=== PATIENT | female | born 1965 | race Hispanic/Latino ===

== ENCOUNTER → 2024-11-21 | Outpatient (CLI) | payer OTHER, MEDICARE ==
--- NOTE | 2024-11-21 15:06 | HMCIMG ---
Exam Type: US VENOUS DOPPLER BILATERAL Clinical Information: Acute embolism and thrombosis of unspecified deep veins of the lower extre Comparison: None Findings: The examination shows nonocclusive thrombosis of the left popliteal vein, right common femoral vein, superficial femoral vein proximal to distal and popliteal vein as well. The rest of the venous structures evaluated shows no evidence of thrombosis. IMPRESSION: Thrombus as noted.
== END | disposition home or self-care (01) ==
LOC: RAH 13:55
PROVIDERS: ATTEND Internal Medicine
DX: I82.432 Acute embolism and thrombosis of left popliteal vein (principal); I82.411 Acute embolism and thrombosis of right femoral vein
CPT/HCPCS: 93970

== ENCOUNTER → 2024-11-30 | Outpatient (CLI) | payer OTHER, MEDICARE ==
--- NOTE | 2024-12-07 01:02 | HMCSR ---
APPROVED REPORT EXAM: Two-dimensional and M-mode echocardiogram with Doppler and color Doppler. Study Details: Hx: breast cancer INDICATION ICD: R94.31 Abnormal electrocardiogram 2D Dimensions RVDd4.2 cmLVEF(%)56.7 (>50%)LVED Vol(simp.)82.2 mL IVSd0.8 (0.7-1.1cm)FS(%)29 %LVES Vol(simp.)34.7 mL LVDd4.2 (3.8-5.6cm)LA (2D)3.2 (1.6-4.0cm)LVEF(%, simp.)58 % PWd1.0 (0.7-1.1cm)Ao Root(2D)2.7 (2.0-3.7cm)LA ESV INDEX (BP)19.14 mL/m2 LVDs2.9 (2.5-4.0cm)LVOT diam1.9 (1.8-2.4cm) IVC diam2.0 cm Deformation Strain Apical 4-17.0 % Apical 2-17.1 % Apical 3-17.0 % Global Strain-17.0 % M-Mode Dimensions EPSS0.5 cm LA (MM)4.0 (1.6-4.0cm) Ao Root(MM)2.7 (2.0-3.7cm) Aortic Valve AoV Vmax1.2 m/Sonali Peak GR5.3 mmHgLVOT Vmax1.0 m/s AoV VTI0.2 mAo Mean GR2.8 mmHgLVOT VTI0.21 m THAD (VMAX)2.52 cm2AVA (VTI) 2.5 cm2 Mitral Valve MV E Vmax68.3 cm/sDECEL Xcln408 ms MV A Vmax80.9 cm/sP 1/2 T62 ms E/A ratio0.8MVA (PHT)3.6 cm2 TDI E/E' Medial9.5E/E' Lateral7.9 Medial E' Peak V7.18 cm/sLateral E' Peak V8.62 cm/s Pulmonary Valve PV Vmax1.0 m/sPV VTI0.20 mPV Mean GR2.1 mmHg PV Peak GR4.0 mmHg Tricuspid Valve RAP (EST) 3 mmHgRVSP3.0 mmHg Left Ventricle The left ventricle is normal size. No regional wall motion abnormalities noted. Mild concentric left ventricular hypertrophy. Left ventricular systolic function is low-normal, estimated LVEF 50-55%. Sta ge I diastolic dysfunction. Right Ventricle The right ventricle is mildly dilated. The right ventricular systolic function is normal, TAPSE 18 mm . Atria The left atrium size is normal. The right atrium size is normal. Aortic Valve Aortic valve is trileaflet. Trace aortic regurgitation. There is no aortic valvular stenosis. Mitral Valve The mitral valve is normal in structure. Trace mitral regurgitation. There is no mitral valve stenosi s. Tricuspid Valve The tricuspid valve is normal in structure. Trace tricuspid regurgitation. RVSP is normal. Pulmonic Valve Pulmonic valve is not well visualized. Great Vessels The aortic root is normal in size. The IVC is normal in size and collapses >50% with inspiration. Pericardium There is no pericardial effusion. Other Information Quality : Adequate Conclusion The right ventricle is mildly dilated. Mild concentric left ventricular hypertrophy. No regional wall motion abnormalities noted. Left ventricular systolic function is low-normal, estimated LVEF 50-55%. Stage I diastolic dysfunction. Trace aortic regurgitation. Trace mitral regurgitation. Trace tricuspid regurgitation. PASP is normal (<40mmHg). There is no pericardial effusion.
== END | disposition home or self-care (01) ==
LOC: RAH 10:44
PROVIDERS: ATTEND Internal Medicine Cardiovascular Disease
DX: I51.7 Cardiomegaly (principal); R94.31 Abnormal electrocardiogram [ECG] [EKG]
CPT/HCPCS: 93306; 93356

== ENCOUNTER → 2024-12-16 | Outpatient (CLI) | payer MEDICAID, OTHER | END | disposition home or self-care (01) | LOC: RAH 13:32 | PROVIDERS: ATTEND Internal Medicine Cardiovascular Disease | DX: I51.9 Heart disease, unspecified (principal); R94.31 Abnormal electrocardiogram [ECG] [EKG]; Z85.3 Personal history of malignant neoplasm of breast | CPT/HCPCS: 93306; 93356 ==

== ENCOUNTER → 2025-06-21 | Outpatient (CLI) | payer OTHER, MEDICARE ==
--- NOTE | 2025-06-22 01:41 | HMCIMG ---
BILATERAL LOWER EXTREMITY VENOUS DOPPLER ULTRASOUND INDICATION: Deep venous thrombosis. TECHNIQUE: Grayscale imaging with compression maneuvers, color Doppler imaging, and spectral Doppler evaluation of the bilateral lower extremity venous systems. COMPARISON: Prior study not provided at the time of reporting. As per technologist sheet prior available 11/21/2024. FINDINGS: RIGHT LOWER EXTREMITY: The right common femoral vein is noncompressible with absent color Doppler flow and absent augmentation, consistent with chronic deep venous thrombosis. The right profunda femoris vein is noncompressible with absent color Doppler flow and absent augmentation, consistent with chronic deep venous thrombosis. The right proximal superficial femoral vein is noncompressible with absent color Doppler flow and absent augmentation, consistent with chronic deep venous thrombosis. The right mid superficial femoral vein is noncompressible with absent color Doppler flow and absent augmentation, consistent with chronic deep venous thrombosis. The right distal superficial femoral vein is noncompressible with absent color Doppler flow and absent augmentation, consistent with chronic deep venous thrombosis. The right popliteal vein is noncompressible with absent color Doppler flow and absent augmentation, consistent with chronic deep venous thrombosis. The right great saphenous vein demonstrates normal compressibility with normal color Doppler flow and normal augmentation. The right posterior tibial vein demonstrates normal compressibility with normal color Doppler flow and normal augmentation. These findings indicate chronic deep venous thrombosis throughout the right femoropopliteal deep venous system, sparing the great saphenous and posterior tibial veins. 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 LEFT LOWER EXTREMITY: The left common femoral vein demonstrates normal compressibility with normal color flow and normal augmentation. The left profunda femoris vein demonstrates normal compressibility with normal color flow and normal augmentation. The left superficial femoral vein (proximal, mid, and distal) demonstrates normal compressibility with normal color flow and normal augmentation. The left popliteal vein is noncompressible with absent color Doppler flow and absent augmentation, consistent with chronic deep venous thrombosis. The left posterior tibial vein demonstrates normal compressibility with normal color flow and normal augmentation. The left great saphenous vein shows normal compressibility and normal Doppler flow. IMPRESSION: 1. Chronic deep venous thrombosis throughout the right lower extremity involving the common femoral, profunda femoris, superficial femoral, and popliteal veins, with sparing of the right great saphenous and right posterior tibial veins. Findings appear stable compared to prior study. 2. Chronic deep venous thrombosis in the left popliteal vein. Recommend clinical correlation. /Henderson
== END | disposition home or self-care (01) ==
LOC: RAH 12:23
PROVIDERS: ATTEND Internal Medicine
DX: I82.533 Chronic embolism and thrombosis of popliteal vein, bilateral (principal); I82.441 Acute embolism and thrombosis of right tibial vein; I82.403 Acute embolism and thrombosis of unspecified deep veins of lower extremity, bilateral
CPT/HCPCS: 93970